=== PATIENT | female | born 2000 | race Caucasian/White ===

== ENCOUNTER 2024-12-17 18:14 | Outpatient (REF) | payer MEDICAID, SELFPAY ==
[2024-12-18 04:36] LABS: Bacterial Vaginosis PCR NEGATIVE (Negative); Candida Group PCR NOT DETECTED (Not Detect); Candida glab krusei PCR NOT DETECTED (Not Detect); Trichomonas vaginalis PCR NOT DETECTED (Not Detect)
[2024-12-18 05:06] LABS: CT PCR DETECTED (Not Detect.); NG PCR NOT DETECTED (Not Detect.)
== END 2024-12-17 18:15 | disposition home or self-care (01) ==
LOC: HO.LNP 18:14
PROVIDERS: Visit Provider Emergency Medicine
DX: N89.8 Other specified noninflammatory disorders of vagina (principal); Z11.8 Encounter for screening for other infectious and parasitic diseases
CPT/HCPCS: 81515; 87086; 87491; 87591

== ENCOUNTER 2024-12-19 12:56 | Outpatient (REF) | payer MEDICAID, SELFPAY ==
--- OUTSIDE RECORDS SUMMARY | 2024-12-19 13:07 | XMS_ITS | Encounter Summary ---
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 Name Role Phone Unavailable Primary Care Provider Unavailabl e Encounter Details Date Type Department Care Team (Latest Contact Info) Description 12/17/2024 Travel Social History Tobacco Use Types Packs/Day Years Used Date Smoking Tobacco: Never Smokeless Tobacco: Never Comments Unknown Sex and Gender Information Value Date Recorded Sex Assigned at Female 12/17/2024 8:34 AM EDT Legal Sex Female 2:40 PM EDT Gender Identity Female 12/17/2024 8:34 AM EDT Sexual Orientation Straight 12/17/2024 8: 34 AM EDT documented as of this encounter Plan of Treatment Not on file documented as of this encounter Visit Diagnoses Not on filedocumented in this encounter
[2024-12-20 03:50] LABS: HBS Num1 0.58 mIU/mL (0-7.99); HBc Num1 0.17 S/CO (0.00-0.79); HBsAGNum1 0.35 S/CO (0.00-0.99); HIV Num 1 0.06 S/CO (0.00-0.99); Hepatitis B Surface Antigen Negative (Negative); ~HepC Num1 0.15 S/CO (0.00-0.79); ~Hepatitis B Surface Antibody NONREACTIVE (Nonreactive); ~Hepatitis C Antibody Nonreactive (Nonreactive)
== END 2024-12-19 12:57 | disposition home or self-care (01) ==
LOC: HO.HHCL 12:56
PROVIDERS: PCP Emergency Medicine; Visit Provider Emergency Medicine
DX: O98.819 Other maternal infectious and parasitic diseases complicating pregnancy, unspecified trimester (principal); A74.9 Chlamydial infection, unspecified; Z11.3 Encounter for screening for infections with a predominantly sexual mode of transmission; Z11.4 Encounter for screening for human immunodeficiency virus [HIV]; Z11.59 Encounter for screening for other viral diseases
CPT/HCPCS: 36415; 86592; 86704; 86706; 86803; 87340; 87389